=== PATIENT | female | born 1965 | race Asian ===

== ENCOUNTER 2018-03-17 11:04 | Emergency (ER) | payer OTHER ==
[~2018-03-17] VITALS: Ht 160 cm; Wt 91.0 kg
[2018-03-17] MEDS ORDERED: KETOROLAC 30 MG/1 ML IM ONE (12:00)
[2018-03-17] MEDS ORDERED: DIAZEPAM 5 MG TABLET PO ONE (12:00)
[2018-03-17] MEDS ORDERED: KETOROLAC 30 MG/1 ML ONE (12:01)
[2018-03-17] MEDS ORDERED: DIAZEPAM 5 MG TABLET ONE (12:01)
[2018-03-17 12:30] VITALS: BP 132/81
== END 2018-03-17 12:32 | disposition home or self-care (01) ==
LOC: ED 12:26
DX: S39.012A Strain of muscle, fascia and tendon of lower back, initial encounter (principal); V49.59XA Passenger injured in collision with other motor vehicles in traffic accident, initial encounter; Y93.89 Activity, other specified; Y92.89 Other specified places as the place of occurrence of the external cause; Y99.8 Other external cause status
CPT/HCPCS: 72110; 96372; 99283; J1885